=== PATIENT | male | born 1950 | race Caucasian/White ===

== ENCOUNTER 2020-06-10 09:10 | Day surgery (SDC) | payer MEDICARE ==
[2020-06-09 09:04] VITALS: BMI 29.0
--- NOTE | 2020-06-10 08:41 | P.GSHP ---
History of Present Illness H&P Date: 06/10/20 CHIEF COMPLAINT: GERD HISTORY OF PRESENT ILLNESS: The patient is a 69-year-old male who presents reports gastroesophageal reflux disease. Upper endoscopy was offered for further evaluation and management. PAST MEDICAL HISTORY: Please see list. PAST SURGICAL HISTORY: Please see list. MEDICATIONS: Please see list. ALLERGIES: Please see list. SOCIAL HISTORY: No illicit drug use FAMILY HISTORY: No reports of Crohn disease or ulcerative colitis. REVIEW OF ORGAN SYSTEMS: CONSTITUTIONAL: No reports of fevers or chills. GI: Denies any blood in stools or constipation. PHYSICAL EXAM: VITAL SIGNS: Stable GENERAL: Well-developed and pleasant in no acute distress. HEENT: No scleral icterus. Extraocular movements grossly intact. Moist buccal mucosa. NECK: Supple without lymphadenopathy. CHEST: Unlabored respirations. Equal bilateral excursions. CARDIOVASCULAR: Regular rate and rhythm. Distal 2+ pulses. ABDOMEN: Soft, nondistended. MUSCULOSKELETAL: No clubbing, cyanosis, or edema. ASSESSMENT: 1. Gastroesophageal reflux disease PLAN: 1. Recommend proceeding with an upper endoscopy Past Medical History Past Medical History: GERD/Reflux, Hyperlipidemia, Neurologic Disorder, Seizure Disorder, Skin Disorder Additional Past Medical History / Comment(s): LAST SEIZUER 6 yrs ago,epilepsy, PARKINSON'S, hiatal hernia, diff swallowing, constipation,gets rashes on knees and elbows, "borderline cholesterol" History of Any Multi-Drug Resistant Organisms: None Reported Past Surgical History: Orthopedic Surgery Additional Past Surgical History / Comment(s): ORIF L ankle. VICENTE CATARACT SX, surgery on tailbone to remove cyst, Past Anesthesia/Blood Transfusion Reactions: No Reported Reaction Additional Past Anesthesia/Blood Transfusion Reaction / Comment(s): HAS NOT HAD GENERAL SURGERY Smoking Status: Never smoker - Past Family History Mother Family Medical History: No Reported History Additional Family Medical History / Comment(s): . Father Family Medical History: Myocardial Infarction ([place]) Additional Family Medical History / Comment(s): Father of a [place] at the age of 65 yrs. Medications and Allergies Home Medications Medication Instructions Recorded Confirmed Type Omeprazole [PriLOSEC] 20 mg PO BID 02/26/16 06/09/20 History Phenytoin Sodium Extended 100 mg PO TID 02/26/16 06/09/20 History [Dilantin] Aspirin [Adult Low Dose Aspirin EC] 81 mg PO DAILY 06/09/20 06/09/20 History Docusate [Colace] 100 mg PO BID 06/09/20 06/09/20 History Ergocalciferol (Vitamin D2) 50 mcg PO DAILY 06/09/20 06/09/20 History [Vitamin D2 (2000 Iu)] Loratadine [Claritin] 10 mg PO DAILY 06/09/20 06/09/20 History Ubidecarenone [Co Q-10] 200 mg PO DAILY 06/09/20 06/09/20 History amantadine HCL [Amantadine] 100 mg PO BID 06/09/20 06/09/20 History l-Mefol/A-Cyst/Meb12/Algal Oil 1 each PO DAILY 06/09/20 06/09/20 History [Cerefolin Nac Caplet] rOPINIRole HCL [Requip] 1 mg PO HS 06/09/20 06/09/20 History Allergies Allergy/AdvReac Type Severity Reaction Status Date / Time atorvastatin [From Lipitor] AdvReac muscle pain Verified 06/09/20 08:52
[~2020-06-10 09:10] MED LIST: LACTATED RINGERS 1,000 ML IV SCH
[2020-06-10] MEDS ORDERED: LACTATED RINGERS 1,000 ML IV ONE (09:55)
[2020-06-10] MEDS ORDERED: LIDOCAINE 1% (10MG/ML) FOR IV START INTRADERMA ONE (09:56)
[2020-06-10 09:59] VITALS: TEMP 98.2
[2020-06-10] MEDS ORDERED: PROPOFOL 10 MG/ML 20 ML VIAL IV ONE (10:55)
[2020-06-10] MEDS ORDERED: LIDOCAINE 1% INJ 10MG/ML (20 ML MDV) ONE (10:55)
--- NOTE | 2020-06-10 11:13 | P.PCN ---
Date of Procedure: 06/10/20 Description of Procedure: PREOPERATIVE DIAGNOSIS: Gastroesophageal reflux disease. Dysphagia Parkinson's disease POSTOPERATIVE DIAGNOSIS: Gastroesophageal reflux disease. Dysphagia Parkinson's disease Diaphragmatic hiatal hernia OPERATION: Esophagogastroduodenoscopy SURGEON: Giana Barrera MD ANESTHESIA: MAC. INDICATIONS: The patient is a 69-year-old male who presents with reflux disease. Benefits and risks of the procedure were described. Informed consent was obtained. DESCRIPTION: The patient was brought into the endoscopy suite and laid in the left lateral decubitus position. An Olympus gastroscope was passed along the posterior oropharynx down to the distal esophagus where the squamocolumnar junction was encountered at 35 cm from the incisors. The stomach was entered and no bile reflux was found. Additional findings are listed below. The first through third portion of the duodenum was examined and unremarkable. Retroflexion of the scope confirmed Hill grade 4 lower esophageal valve. The squamocolumnar junction demonstrated LA grade B erosive esophagitis. The patient had moderate chronic cough prohibiting dilation. The stomach was desufflated. The patient tolerated the procedure well. FINDINGS: Squamocolumnar junction 35 cm from the incisors. Diaphragmatic hiatus at 40 cm. Hiatal hernia, 5 cm Hill grade 4 lower esophageal valve. LA grade B erosive esophagitis. No active duodenitis. Chronic gastritis Hypersensitive upper esophageal sphincter Chronic cough prohibiting dilation RECOMMENDATIONS: Upper endoscopy as needed. Plan - Discharge Summary New Discharge Prescriptions: Continue Phenytoin Sodium Extended [Dilantin] 100 mg PO TID Omeprazole [PriLOSEC] 20 mg PO BID Ubidecarenone [Co Q-10] 200 mg PO DAILY Ergocalciferol (Vitamin D2) [Vitamin D2 (2000 Iu)] 50 mcg PO DAILY Loratadine [Claritin] 10 mg PO DAILY Docusate [Colace] 100 mg PO BID Aspirin [Adult Low Dose Aspirin EC] 81 mg PO DAILY l-Mefol/A-Cyst/Meb12/Algal Oil [Cerefolin Nac Caplet] 1 each PO DAILY rOPINIRole HCL [Requip] 1 mg PO HS amantadine HCL [Amantadine] 100 mg PO BID Discharge Medication List Omeprazole [PriLOSEC] 20 mg PO BID 02/26/16 [History] Phenytoin Sodium Extended [Dilantin] 100 mg PO TID 02/26/16 [History] Aspirin [Adult Low Dose Aspirin EC] 81 mg PO DAILY 06/09/20 [History] Docusate [Colace] 100 mg PO BID 06/09/20 [History] Ergocalciferol (Vitamin D2) [Vitamin D2 (2000 Iu)] 50 mcg PO DAILY 06/09/20 [History] Loratadine [Claritin] 10 mg PO DAILY 06/09/20 [History] Ubidecarenone [Co Q-10] 200 mg PO DAILY 06/09/20 [History] amantadine HCL [Amantadine] 100 mg PO BID 06/09/20 [History] l-Mefol/A-Cyst/Meb12/Algal Oil [Cerefolin Nac Caplet] 1 each PO DAILY 06/09/20 [History] rOPINIRole HCL [Requip] 1 mg PO HS 06/09/20 [History] Follow up Appointment(s)/Referral(s): Giana Barrera MD [STAFF PHYSICIAN] - 06/16/20 Patient Instructions/Handouts: Hiatal Hernia (DC), Gastroesophageal Reflux Disease (DC) Discharge Disposition: HOME SELF-CARE
[2020-06-10 11:27] VITALS: RESP 16
[2020-06-10 11:48] VITALS: BP 109/72; PULSE 66
== END 2020-06-10 12:32 | disposition home or self-care (01) ==
LOC: ORWHC2ENDO 09:10
PROVIDERS: ATTEND Surgery Plastic and Reconstructive Surgery
DX: K22.10 Ulcer of esophagus without bleeding (principal); R05 Cough; K44.9 Diaphragmatic hernia without obstruction or gangrene; K29.50 Unspecified chronic gastritis without bleeding; R13.10 Dysphagia, unspecified; G40.909 Epilepsy, unspecified, not intractable, without status epilepticus; Z98.42 Cataract extraction status, left eye; Z98.41 Cataract extraction status, right eye; Z82.49 Family history of ischemic heart disease and other diseases of the circulatory system; G20 Parkinson's disease; Z79.82 Long term (current) use of aspirin; Z79.899 Other long term (current) drug therapy; Z88.8 Allergy status to other drugs, medicaments and biological substances
CPT/HCPCS: 43235; J2001; J2704

== ENCOUNTER → 2020-07-03 | Outpatient (CLI) | payer MEDICARE ==
--- NOTE | 2020-07-03 13:29 | FL ---
EXAMINATION TYPE: FL barium swallow DATE OF EXAM: 07/03/2020 COMPARISON: None HISTORY: Gastroesophageal reflux TECHNIQUE: Double air contrast technique was utilized to evaluate the esophagus. Fluoroscopic spot im aging and overhead radiographs were obtained. Real-time observation was performed. FINDINGS: Esophagus dilates to a prominent caliber. A few subtle tertiary contractions are within the distal esophagus. There is incomplete stripping of the esophageal bolus in the horizontal drinking p osition. Multiple episodes of distal esophageal reflux is evident. Small self reducing sliding type h iatal hernia is present. Fluoroscopy time: 20 seconds Images: 155 IMPRESSION: 1. Mild presbyesophagus. 2. Gastroesophageal reflux in the distal esophagus. 3. There may be a small self reducing sliding type hiatal hernia present
== END ==
LOC: RADUSWWP 09:49
PROVIDERS: ATTEND Surgery Plastic and Reconstructive Surgery
DX: K21.9 Gastro-esophageal reflux disease without esophagitis (principal); K22.8 Other specified diseases of esophagus; R00.1 Bradycardia, unspecified
CPT/HCPCS: 74220; 93005

== ENCOUNTER → 2020-12-03 | Outpatient (CLI) | payer MEDICARE ==
[2020-12-03 10:20] LABS: HCT 50.2 % (39.0-53.0); MCH 32.5 pg (25.0-35.0); MCHC 33.9 g/dL (31.0-37.0); Mean Platelet Volume 8.8; Platelet Count 196 k/uL (150-450); RBC 5.23 m/uL (4.30-5.90); RDW 12.9 % (11.5-15.5); WBC 4.3 k/uL (3.8-10.6)
== END | disposition home or self-care (01) ==
LOC: LABPAT 09:04
PROVIDERS: ATTEND Surgery Plastic and Reconstructive Surgery
DX: Z01.812 Encounter for preprocedural laboratory examination (principal); K44.9 Diaphragmatic hernia without obstruction or gangrene
CPT/HCPCS: 36415; 85027

== ENCOUNTER 2020-12-04 06:21 | Day surgery (SDC) | payer MEDICARE ==
--- NOTE | 2020-12-04 06:16 | P.GSHP ---
History of Present Illness H&P Date: 12/04/20 CHIEF COMPLAINT: Paraesophageal hiatal hernia with gastroesophageal reflux disease. HISTORY OF PRESENT ILLNESS: The patient is a 70-year-old male who presents with paraesophageal hiatal hernia. He has completed an esophageal manometry including upper endoscopy workup. Now he presents for surgical intervention. PAST MEDICAL HISTORY: Please see list. PAST SURGICAL HISTORY: Please see list. MEDICATIONS: Please see list. ALLERGIES: Please see list. SOCIAL HISTORY: No illicit drug use FAMILY HISTORY: No reports of Crohn disease or ulcerative colitis. REVIEW OF ORGAN SYSTEMS: CONSTITUTIONAL: No reports of fevers or chills. GI: Denies any blood in stools or constipation. PHYSICAL EXAM: VITAL SIGNS: Stable GENERAL: Well-developed pleasant and in no acute distress. HEENT: No scleral icterus. Extraocular movements grossly intact. Moist buccal mucosa. NECK: Supple without lymphadenopathy. CHEST: Unlabored respirations. Equal bilateral excursions. CARDIOVASCULAR: Regular rate and rhythm. Distal 2+ pulses. ABDOMEN: Soft, nondistended. No peritoneal signs. MUSCULOSKELETAL: No clubbing, cyanosis, or edema. SKIN: Well-perfused. Good skin turgor. MANOMETRY: Shows no evidence of achalasia or scleroderma. ASSESSMENT: 1. Diaphragmatic paraesophageal hiatal hernia with severe gastroesophageal reflux disease. PLAN: 1. Recommend proceeding with a robotic paraesophageal hiatal hernia with possible mesh. 2. Benefits and risks of surgical intervention was discussed including possibility of open technique. 3. Inpatient hospitalization recommended of 2 nights 4. DVT prophylaxis. 5. Antibiotic prophylaxis. 6. He has also completed a very low caloric high-protein diet to address underlying hepatomegaly. Past Medical History Past Medical History: GERD/Reflux, Hyperlipidemia, Neurologic Disorder, Seizure Disorder, Skin Disorder Additional Past Medical History / Comment(s): LAST SEIZURE 6 yrs ago,epilepsy, PARKINSON'S, hiatal hernia, diff swallowing, constipation,gets rashes on knees a nd elbows-NO CURRENT RASH, "borderline cholesterol" History of Any Multi-Drug Resistant Organisms: None Reported Past Surgical History: Orthopedic Surgery Additional Past Surgical History / Comment(s): ORIF L ankle. VICENTE CATARACT SX, PILONIDAL CYSTECTOMY, COLONOSCOPY, EGD Past Anesthesia/Blood Transfusion Reactions: No Reported Reaction Additional Past Anesthesia/Blood Transfusion Reaction / Comment(s): HAS NOT HAD GENERAL SURGERY Smoking Status: Never smoker - Past Family History Mother Family Medical History: No Reported History Additional Family Medical History / Comment(s): . Father Family Medical History: Myocardial Infarction ([place]) Additional Family Medical History / Comment(s): Father of a [place] at the age of 65 yrs. Medications and Allergies Home Medications Medication Instructions Recorded Confirmed Type Omeprazole [PriLOSEC] 20 mg PO BID 02/26/16 12/01/20 History Phenytoin Sodium Extended 100 mg PO TID 02/26/16 12/01/20 History [Dilantin] Aspirin [Adult Low Dose Aspirin EC] 81 mg PO DAILY 06/09/20 12/01/20 History Ergocalciferol (Vitamin D2) 50 mcg PO DAILY 06/09/20 12/01/20 History [Vitamin D2 (2000 Iu)] Loratadine [Claritin] 10 mg PO DAILY 06/09/20 12/01/20 History Ubidecarenone [Co Q-10] 200 mg PO DAILY 06/09/20 12/01/20 History amantadine HCL [Amantadine] 100 mg PO BID 06/09/20 12/01/20 History l-Mefol/A-Cyst/Meb12/Algal Oil 1 each PO DAILY 06/09/20 12/01/20 History [Cerefolin Nac Caplet] rOPINIRole HCL [Requip] 1 mg PO HS 06/09/20 12/01/20 History Allergies Allergy/AdvReac Type Severity Reaction Status Date / Time atorvastatin [From Lipitor] AdvReac muscle pain Verified 12/01/20 14:26
[~2020-12-04 06:21] MED LIST changes: +HEPARIN SODIUM,PORCINE/PF 5,000 UNIT/0.5 ML SYRINGE SQ PRN; -LACTATED RINGERS 1,000 ML IV SCH
[2020-12-04] MEDS ORDERED: CHLORHEXIDINE GLUCONATE 15 ML CUP MUCOUS MEM PRN (07:00)
[2020-12-04] MEDS ORDERED: TAMSULOSIN 0.4 MG CAP.ER.24H PO PRN (07:00)
[2020-12-04] MEDS ORDERED: GABAPENTIN 300 MG CAP PO PRN (07:00)
[2020-12-04] MEDS ORDERED: ACETAMINOPHEN TAB 500 MG TAB PO PRN (07:00)
[2020-12-04] MEDS ORDERED: PANTOPRAZOLE 40 MG/10 ML VIAL IVP PRN (07:00)
[2020-12-04] MEDS ORDERED: MELOXICAM 7.5 MG TAB PO PRN (07:00)
[2020-12-04] MEDS ORDERED: LACTATED RINGERS 1,000 ML IV ONE ×2 (07:16→09:12)
[2020-12-04] MEDS ORDERED: ONDANSETRON 4 MG/2 ML VIAL ONE (07:21)
[2020-12-04] MEDS ORDERED: LIDOCAINE 1% INJ 10MG/ML (20 ML MDV) ONE (07:26)
[2020-12-04] MEDS ORDERED: PROPOFOL 10 MG/ML 20 ML VIAL IV ONE (07:26)
[2020-12-04] MEDS ORDERED: ePHEDrine SULFATE/0.9% NACL/PF 50 MG/5 ML SYRINGE IV ONE (07:26)
[2020-12-04] MEDS ORDERED: NEOSTIGMINE 1 MG/ML 10 ML VIAL ONE (07:26)
[2020-12-04] MEDS ORDERED: HYDROmorphone (PF) 1 MG/ML ONE (07:26)
[2020-12-04] MEDS ORDERED: GLYCOPYRROLATE 0.2 MG/ML 2 ML VIAL ONE (07:26)
[2020-12-04] MEDS ORDERED: fentaNYL (PF) 50 MCG/ML 2 ML AMP ONE (07:26)
[2020-12-04] MEDS ORDERED: SUCCINYLCHOLINE CHLORIDE 100 MG/5 ML SYR IV ONE (07:26)
[2020-12-04] MEDS ORDERED: ROCURONIUM 10 MG/ML (5 ML VIAL) IV ONE (07:26)
[2020-12-04] MEDS ORDERED: DEXAMETHASONE SOD PHOSPHATE 4 MG/ML 1 ML VIAL IVP ONE (07:30)
[2020-12-04] MEDS ORDERED: ONDANSETRON 4 MG/2 ML VIAL IVP ONE (07:30)
[2020-12-04 08:05] LABS: ALT 34 U/L (4-49); AST 34 U/L (17-59); African American GFR (CKD) >90 (>60 ml/min/1.73 sqM); Albumin 4.7 g/dL (3.5-5.0); Alkaline Phosphatase 135 U/L (38-126); Anion Gap 11 mmol/L; Blood Urea Nitrogen 23 mg/dL (9-20); Calcium 9.6 mg/dL (8.4-10.2); Carbon Dioxide 22 mmol/L (22-30); Chloride 105 mmol/L (98-107); Glucose 82 mg/dL (74-99); Non-African American GFR(CKD) >90 (>60 ml/min/1.73 sqM); Potassium 4.4 mmol/L (3.5-5.1); Sodium 138 mmol/L (137-145); Total Bilirubin 0.5 mg/dL (0.2-1.3); Total Protein 7.8 g/dL (6.3-8.2)
[2020-12-04] MEDS ORDERED: LIDOCAINE 1%-EPI 1:100,000 20 ML VIAL SQ ONE (08:10)
[2020-12-04] MEDS ORDERED: HYDROmorphone 1 MG/ML 1 ML SYRINGE ONE (09:30)
[2020-12-04] MEDS: HYDROmorphone 0.5 MG/0.5 ML SYRINGE IVP ONE ×3 (09:33→09:43)
[2020-12-04] MEDS ORDERED: diphenhydrAMINE 50 MG/ML 1 ML VIAL ONE (09:39)
[2020-12-04] MEDS ORDERED: HYDROmorphone 1 MG/ML 1 ML SYRINGE IVP PRN (10:54)
[2020-12-04] MEDS ORDERED: DEXAMETHASONE SOD PHOSPHATE 10 MG/ML 1 ML VIAL IV PRN (10:57)
[2020-12-04] MEDS ORDERED: ONDANSETRON 4 MG/2 ML VIAL IVP PRN (10:57)
--- NOTE | 2020-12-04 11:01 | P.OP ---
Date of Procedure: 12/04/20 Description of Procedure: SURGEON: SHARAD WELLER MD PREOPERATIVE DIAGNOSES: 1. Symptomatic paraesophageal diaphragmatic hiatal hernia. 2. Gastroesophageal reflux disease. 3. Hypertensive heart disease 4. Generalized anxiety disorder 5. Parkinson's disease POSTOPERATIVE DIAGNOSES: 1. Paraesophageal midline diaphragmatic hernia, 3 cm, without incarceration. 2. Gastroesophageal reflux disease. 3. Hypertensive heart disease 4. Generalized anxiety disorder 5. Parkinson's disease 6. Esophageal dysmotility with ineffective esophageal motility OPERATION: 1. Robotic-assisted da Kristine Xi laparoscopic repair of incarcerated paraesophageal hiatal hernia, 5 x 4 cm, with Pigeon Biopatch A 8 x 8 cm. 2. Intraoperative esophagogastroduodenoscopy 3. Placement of 56-Palestinian bougie for esophageal dysmotility ANESTHESIA: General with local anesthetic. ESTIMATED BLOOD LOSS: 5 mL SPECIMENS REMOVED: None COMPLICATIONS: None. Condition: stable Disposition: floor FINDINGS: 1. Midline incarcerated paraesophageal hiatal hernia 5 x 4 cm 2. Intraoperative upper endoscopy confirms complete closure of hiatal hernia from Hill grade 3 to Hill grade 1 3. Intraesophageal length over 2 cm INDICATIONS: The patient is a 70-year-old male who presents with gastroesophageal reflux disease poorly controlled despite medications, and a symptomatic diaphragmatic hiatal hernia. Preoperative workup including upper endoscopy demonstrated a sliding hiatal hernia. The patient completed an esophageal manometry. Given the severity of symptoms, the patient had elected for surgical intervention. Benefits and risks including bleeding, infection, recurrence, dysphagia, injury to the lung, need for further surgery was described at length. Informed consent was obtained. DESCRIPTION: The patient was brought into the operating room and placed in supine position. Preoperatively the patient had received heparin subcutaneously for DVT prophylaxis. After general induction, the abdomen was prepped and draped in standard sterile fashion. The patient had previously voided prior to coming to the operating room. Ioban draping was placed along the abdomen. A timeout protocol was confirmed with the surgical team, for which the patient's name, procedure to be performed including DVT prophylaxis with bilateral SCDs, and preoperative antibiotics were also confirmed. A robotic da Kristine Xi system was prepped and primed. At 12 cm from the xiphoid to just below the umbilicus, proposed port sites were marked with indelible marker along the left axillary line, left mid-clavicular line with each ports were marked 10 cm from each other. A 5 mm 0 degrees laparoscopic trocar entry was performed along the left upper quadrant. The abdomen was insufflated to 15 mmHg pressure was tolerated well. Diagnostic laparoscopy demonstrated no injury to bowel, viscera, or mesentery. No injury had occurred to the small bowel or viscera. The liver was smooth consistent with two-week high-protein low-carb diet. Previous trochar sites from cholecystectomy were used. Next, one 8 mm robotic port was placed along the right upper abdomen. An 8-mm port was were placed along the right lateral lateral abdominal wall. The camera 8-mm port was maintained along the epigastrium. Another 12 mm port was placed along the left upper abdominal wall after exchanging the 5 mm port. Please note that the ports were placed at least 20 cm away from the target anatomy. Care was taken to check that each robotic arm were safely away from collision with the bed or the patient. At the epigastrium, a medium sized Jarad liver retractor was placed under direct visualization with the Iron Entry Level Electrical Engineer placed under the right shoulder of the patient. All robotic arms were used. The patient was repositioned in reverse Trendelenburg position at 21-degrees after lowering the bed. The robot was docked above the right side of the patient. Using a grasper for arm 3, a grasper for arm 1, including vessel sealer for arm 2, the robotic system was docked and primed as described. Instruments were i nterchanged by the assistant activities director. I had sat at the console. The gastrohepatic ligament was cleaved using a vessel sealer. Next, the phrenoesophageal ligament was mobilized and the distal esophagus was mobilized circumferentially. The left and right crura was identified. Circumferentially, the hernia sac was excised and brought into the peritoneal cavity. Moderate dissection into the mediastinum was performed to release the esophagus into the abdominal cavity. The paraesophageal hiatal hernia sac was also incised and divided from the esophagus. Care was taken to avoid any gastrotomy. The measured defect was consistent with 3 cm axial length and 3 cm in width. After dissection, the distal esophagus of 2+ cm was brought into the abdominal cavity. Once the hiatus and crura was dissected, 2-0 VLOC nonabsorbable suture was placed to reapproximate the diaphragmatic hiatus posteriorly. To buttress the repair, a Pigeon Biopatch A was prepared along the back table and cut in half of a talbot-hole fashion as to reinforce the repair as an underlay. The mesh was placed along the crural repair and tagged using horizontal mattress sutures using 2-0 VLOC. I went to the head of the bed to perform intraoperative esophagogastroduodenoscopy and placement of a 56Fr bougie. The bougie was passed along the posterior oropharynx into the stomach to address pre-existing esophageal dysmotility for 2 minutes then removed. An Olympus gastroscope was passed through posterior oropharynx. Retroflexion of the scope confirmed a Hill grade 1 lower esophageal valve. A gastric cardia diverticulum was identified. The stomach had been desufflated. No evidence of leaks were found of the esophagus or stomach. The GI tract with desufflated This concluded the endoscopic portion of the case. The robot was undocked from the patient. I re-scrubbed into the case. All instruments and pneumoperitoneum and specimens were evacuated from the abdominal cavity. Incisions were reapproximated using 4-0 Monocryl in an interrupted subcuticular fashion. Liquid glue was applied to the skin. Local anesthetic was infiltrated in all wounds for postop analgesia. At the end of the procedure, needle, sponge, and instrument count was verified correct by the surgical brace maker. The patient had tolerated the procedure well and was taken to the postanesthesia unit in stable condition.
[2020-12-04 11:42] LABS: Basophils % (A) 0 %; Eosinophils # (A) 0.1 k/uL (0-0.7); Eosinophils % (A) 1 %; HCT 50.8 % (39.0-53.0); HGB 16.9 gm/dL (13.0-17.5); Lymphocytes # (A) 0.2 k/uL (1.0-4.8); Lymphocytes % (A) 4 %; MCH 32.1 pg (25.0-35.0); MCHC 33.2 g/dL (31.0-37.0); MCV 96.7 fL (80.0-100.0); Mean Platelet Volume 8.5; Monocytes # (A) 0.1 k/uL (0-1.0); Monocytes % (A) 2 %; Neutrophils % (A) 92 %; Platelet Count 187 k/uL (150-450); RBC 5.25 m/uL (4.30-5.90); WBC 6.5 k/uL (3.8-10.6)
[2020-12-04] MEDS ORDERED: ONDANSETRON 4 MG/2 ML VIAL IVP SCH (12:00)
[2020-12-04] MEDS: DEXAMETHASONE SOD PHOSPHATE 4 MG/ML 1 ML VIAL IV SCH ×2 (12:02→16:56)
[2020-12-04 12:08] LABS: African American GFR (CKD) >90 (>60 ml/min/1.73 sqM); Anion Gap 12 mmol/L; Blood Urea Nitrogen 20 mg/dL (9-20); Calcium 9.3 mg/dL (8.4-10.2); Carbon Dioxide 23 mmol/L (22-30); Chloride 102 mmol/L (98-107); Glucose 115 mg/dL (74-99); Non-African American GFR(CKD) >90 (>60 ml/min/1.73 sqM); Potassium 4.5 mmol/L (3.5-5.1); Sodium 137 mmol/L (137-145)
[2020-12-04] MEDS: SODIUM CHLORIDE 0.9% 1,000 ML IV SCH (12:30)
[2020-12-04 13:50] VITALS: BMI 26.0
[2020-12-04] MEDS ORDERED: PHENYTOIN SODIUM EXTENDED 100 MG CAP PO SCH (16:00)
[2020-12-05] MEDS: DEXAMETHASONE SOD PHOSPHATE 4 MG/ML 1 ML VIAL IV SCH ×3 (00:47→12:48)
[2020-12-05] MEDS: PHENYTOIN SODIUM EXTENDED 100 MG CAP PO SCH ×2 (00:48→08:45)
[2020-12-05 07:59] LABS: Basophils % (A) 0 %; Eosinophils % (A) 1 %; Lymphocytes # (A) 0.5 k/uL (1.0-4.8); Lymphocytes % (A) 8 %; MCH 32.6 pg (25.0-35.0); Mean Platelet Volume 9.8; Monocytes # (A) 0.3 k/uL (0-1.0); Monocytes % (A) 4 %; Neutrophils # (A) 5.6 k/uL (1.3-7.7); Neutrophils % (A) 86 %; Platelet Count 174 k/uL (150-450); RDW 12.9 % (11.5-15.5); WBC 6.5 k/uL (3.8-10.6)
[2020-12-05] MEDS: SODIUM CHLORIDE 0.9% 1,000 ML IV SCH (08:40)
[2020-12-05] MEDS ORDERED: ENOXAPARIN 30 MG/0.3 ML SYRINGE SQ SCH (09:00)
[2020-12-05] MEDS ORDERED: ASPIRIN 81 MG PO SCH (09:00)
--- NOTE | 2020-12-05 12:34 | FL ---
EXAMINATION TYPE: FL esophagus cervic/pharynx DATE OF EXAM: 12/05/2020 COMPARISON: None HISTORY: 07/03/2020 TECHNIQUE: Single contrast technique. Patient was performed in the supine view with oblique views obt ained due to the patient's physical condition unable to perform an appropriate exam. This may cause s ome limitation. FINDINGS: Esophagus is somewhat patulous. Contrast passes through the Vincent without significant hesi tancy. No extravasation of contrast is evident. Overhead radiographs were obtained. No suspicious extravasation is evident. There is some free air pr esent during this examination. Fluoroscopy time: 8 seconds. Images: 11 IMPRESSION: 1. No significant has seen passing through the level of the ascending fundoplication. 2. No extravasation. 3. Some limitation of the examination due to physical condition.
[2020-12-05 14:49] VITALS: BP 121/73; PULSE 71; RESP 17; TEMP 98.1
--- NOTE | 2020-12-05 15:33 | P.PN ---
Subjective Progress Note Date: 12/05/20 CHIEF COMPLAINT: Symptomatic hiatal hernia HISTORY OF PRESENT ILLNESS: The patient is a 70-year-old male status post hiatal hernia repair. He is postoperative day 1. He completed his esophagram. Ov gretta, patient rolled out of bed. No current injuries. His is at bedside. "I feel great!" He denies any further GERD. He denies any troubles with urination. ROS: No reports of nausea and vomiting. No bowel movements. No fevers or chills. No new chest pain. No productive sputum. He has Parkinson's disease with tremors. He has esophageal dysmotility PHYSICAL EXAM: VITAL SIGNS: Reviewed CONSTITUTIONAL: Well developed and in no acute distress. EYES: Conjuctivae without sclera icterus. Extraocular movements grossly intact. HEAD, EARS, NOSE, THROAT: Moist buccal mucosa. Head is atraumatic, normocephalic. Hears conversational speech. No nasal drainage. NECK: No thyroidomegaly. RESPIRATORY: Non-labored respirations and equal bilateral excursions. CARDIOVASCULAR: Palpable 2+ radial pulses. ABDOMEN: Incisions clean dry and intact. Soft. No peritonitis. MUSCULOSKELETAL: No gross deformity of the lower extremities noted. No clubbing. No cyanosis. SKIN: Good skin turgor. Well perfused. NEUROLOGIC: Cranial nerves II through XII grossly intact. No focal or later alizing signs. PSYCH: Appropriate affect. Alert and oriented to person, place and time. CLINICAL LABS: White blood cell count normal at 6.5. Creatinine normal. STUDIES: Barium swallow independently reviewed demonstrates contrast progresses into the stomach. No significant obstruction. The is my independent interpretation. No evidence of leak. ASSESSMENT: 1. Hiatal hernia with gastroesophageal reflux disease 2. Esophageal dysmotility, pre-existing 3. Parkinson's disease PLAN: 1. Discharge diet and instructions reviewed. 2. Post-Jackie diet reviewed 3. Follow up in 5 days. Objective - Vital Signs Vital signs: Vital Signs Temp 97.5 F L 12/05/20 08:00 Pulse 79 12/05/20 08:00 Resp 18 12/05/20 08:00 BP 125/75 12/05/20 08:00 Pulse Ox 93 L 12/05/20 08:00 Intake & Output 08/06/21 08/07/21 08/07/21 18:59 06:59 18:59 Intake Total 1700 Output Total 205 Balance 1495 Weight 80.1 kg Intake: IV 1700 Output: Urine 200 Estimated Blood Loss 5 Other: Voiding Method Toilet Urinal # Voids 1 2 - Labs CBC & Chem 7: 12/05/20 07:01 12/04/20 11:03 Labs: Abnormal Lab Results - Last 24 Hours (Table) 12/05/20 Range/Units 07:01 Lymphocytes # 0.5 L (1.0-4.8) k/uL
--- NOTE | 2020-12-05 15:48 | P.DS ---
Providers Date of admission: 12/04/2020 Expected date of discharge: 12/05/20 Attending physician: Giana Barrera Primary care physician: Dominique Mathews - Discharge Diagnosis(es) (1) Dysphagia Current Visit: No Status: Acute (2) Paraesophageal hernia Current Visit: No Status: Acute (3) Parkinson disease Current Visit: No Status: Acute Hospital Course: CHIEF COMPLAINT: Symptomatic hiatal hernia HISTORY OF PRESENT ILLNESS: The patient is a 70-year-old male status post hiatal hernia repair. He is postoperative day 1. He completed his esophagram. Overnight, patient rolled out of bed. No current injuries. His is at bedside. "I feel great!" He denies any further GERD. He denies any troubles with urination. ROS: No reports of nausea and vomiting. No bowel movements. No fevers or chills. No new chest pain. No productive sputum. He has Parkinson's disease with tremors. He has esophageal dysmotility PHYSICAL EXAM: VITAL SIGNS: Reviewed CONSTITUTIONAL: Well developed and in no acute distress. EYES: Conjuctivae without sclera icterus. Extraocular movements grossly intact. HEAD, EARS, NOSE, THROAT: Moist buccal mucosa. Head is atraumatic, normocephalic. Hears conversational speech. No nasal drainage. NECK: No thyroidomegaly. RESPIRATORY: Non-labored respirations and equal bilateral excursions. CARDIOVASCULAR: Palpable 2+ radial pulses. ABDOMEN: Incisions clean dry and intact. Soft. No peritonitis. MUSCULOSKELETAL: No gross deformity of the lower extremities noted. No clubbing. No cyanosis. SKIN: Good skin turgor. Well perfused. NEUROLOGIC: Cranial nerves II through XII grossly intact. No focal or lateralizing signs. PSYCH: Appropriate affect. Alert and oriented to person, place and time. CLINICAL LABS: White blood cell count normal at 6.5. Creatinine normal. STUDIES: Barium swallow independently reviewed demonstrates contrast progresses into the stomach. No significant obstruction. The is my independent interpretation. No evidence of leak. ASSESSMENT: 1. Hiatal hernia with gastroesophageal reflux disease 2. Esophageal dysmotility, pre-existing 3. Parkinson's disease PLAN: 1. Discharge diet and instructions reviewed. 2. Post-Jackie diet reviewed 3. Follow up in 5 days. Procedures: OPERATION: 1. Robotic-assisted da Kristine Xi laparoscopic repair of incarcerated paraesophageal hiatal hernia, 5 x 4 cm, with Carlton Biopatch A 8 x 8 cm. 2. Intraoperative esophagogastroduodenoscopy 3. Placement of 56-Jamaican bougie for esophageal dysmotility ANESTHESIA: General with local anesthetic. ESTIMATED BLOOD LOSS: 5 mL SPECIMENS REMOVED: None COMPLICATIONS: None. Condition: stable Disposition: floor FINDINGS: 1. Midline incarcerated paraesophageal hiatal hernia 5 x 4 cm 2. Intraoperative upper endoscopy confirms complete closure of hiatal hernia from Hill grade 3 to Hill grade 1 3. Intraesophageal length over 2 cm Patient Condition at Discharge: Good Plan - Discharge Summary Discharge Rx Participant: Yes New Discharge Prescriptions: New Acetaminophen Tab [Tylenol Tab] 1,000 mg PO Q6HR PRN #30 tablet PRN Reason: Pain Simethicone [Gas-X] 125 mg PO AC-TID PRN #20 capsule PRN Reason: Pain Continue Phenytoin Sodium Extended [Dilantin] 100 mg PO TID Ubidecarenone [Co Q-10] 200 mg PO DAILY Ergocalciferol (Vitamin D2) [Vitamin D2 (2000 Iu)] 50 mcg PO DAILY Loratadine [Claritin] 10 mg PO DAILY Aspirin [Adult Low Dose Aspirin EC] 81 mg PO DAILY l-Mefol/A-Cyst/Meb12/Algal Oil [Cerefolin Nac Caplet] 1 each PO DAILY rOPINIRole HCL [Requip] 1 mg PO HS amantadine HCL [Amantadine] 100 mg PO BID Discontinued Omeprazole [PriLOSEC] 20 mg PO BID Discharge Medication List Phenytoin Sodium Extended [Dilantin] 100 mg PO TID 02/26/16 [History] Aspirin [Adult Low Dose Aspirin EC] 81 mg PO DAILY 06/09/20 [History] Ergocalciferol (Vitamin D2) [Vitamin D2 (2000 Iu)] 50 mcg PO DAILY 06/09/20 [History] Loratadine [Claritin] 10 mg PO DAILY 06/09/20 [History] Ubidecarenone [Co Q-10] 200 mg PO DAILY 06/09/20 [History] amantadine HCL [Amantadine] 100 mg PO BID 06/09/20 [History] l-Mefol/A-Cyst/Meb12/Algal Oil [Cerefolin Nac Caplet] 1 each PO DAILY 06/09/20 [History] rOPINIRole HCL [Requip] 1 mg PO HS 06/09/20 [History] Acetaminophen Tab [Tylenol Tab] 1,000 mg PO Q6HR PRN #30 tablet 12/05/20 [Rx] Simethicone [Gas-X] 125 mg PO AC-TID PRN #20 capsule 12/05/20 [Rx] Follow up Appointment(s)/Referral(s): Giana Barrera MD [STAFF PHYSICIAN] - 12/08/20 Patient Instructions/Handouts: Laparoscopic Hiatal Hernia Repair (DC) Activity/Diet/Wound Care/Special Instructions: Liquid diet only for 2 weeks until Dec 18 No lifting over 4 pounds in 4 weeks, January 04August shower No soaking in bath tubs for until Dec 18 Please notify your surgeon if you develop nausea and vomiting including new onset of abdominal pain. Please ambulate at all times. Use Simethicone, Gas-X, Tylenol and ibuprofen or Aleve scheduled for the next 24-48 hours for best pain relief. Use ice along incisions for the today to prevent swelling. Please open, cut, crush pills larger than the size of a tic tack No carbonated beverages. No straws. Do not remove scopolamine patch for 3 days, if present Avoiding Gas Avoid drinking through a straw. Do not chew gum or tobacco. These actions cause you to swallow air, which produces excess gas in your stomach. Chew with your mouth closed. Avoid any foods that cause stomach gas and distention. These foods include corn, dried beans, peas, lentils, onions, broccoli, cauliflower and any food from the cabbage family. Avoid carbonated drinks, alcohol, citrus and tomato products. Carbonated drinks (sodas) are not allowed for the first six to eight weeks after surgery. After this time you can try them again in small amounts Clear Liquid Diet The first diet after surgery is the clear liquid diet. It includes the following liquids: Apple juice Cranberry juice Grape juice Chicken broth Beef broth Flavored gelatin (Jell-O) Decaf tea and coffee Caffeinated beverages are permitted based on tolerance Popsicles Indonesian ice Full Liquid Diet The full liquid diet contains anything on the clear liquid diet, plus: Milk, soy, rice and almond (no chocolate) Cream of wheat, cream of rice, grits Strained creamed soups (no tomato or broccoli) Vanilla and strawberry-flavored ice cream Sherbet Blended, custard styled or whipped yogurt (plain or vanilla only) Vanilla and butterscotch pudding (no chocolate or coconut) Nutritional drinks including Ensure, Boost, [place] Instant Breakfast (no chocolate-flavored) Note: Dairy products, such as milk, ice cream and pudding, may cause diarrhea in some people just after surgery. You may need to avoid milk products. If so, substitute them with lactose-free beverages, such as soy, rice, Lactaid or almond milks. Discharge Disposition: HOME SELF-CARE
== END 2020-12-05 16:11 | disposition home or self-care (01) ==
LOC: OR 06:21 → 4SSUR 10:07 → OR 12-05 16:11
PROVIDERS: ATTEND Surgery Plastic and Reconstructive Surgery
DX: K44.9 Diaphragmatic hernia without obstruction or gangrene (principal); G20 Parkinson's disease; K21.9 Gastro-esophageal reflux disease without esophagitis; K22.4 Dyskinesia of esophagus; Z79.82 Long term (current) use of aspirin; Z98.890 Other specified postprocedural states; E78.5 Hyperlipidemia, unspecified; I34.1 Nonrheumatic mitral (valve) prolapse; Z86.69 Personal history of other diseases of the nervous system and sense organs
CPT/HCPCS: 43281; 94760; 80053; 80048; 85025 ×2; 74210; C1781; J1200; J1100 ×2; J2710; J0690 ×2; J2405; J2001; J3010; J1650; J1170 ×2; J0330; J2704; C9113; Q9967; J1644

== ENCOUNTER 2023-02-05 08:47 | Observation (INO) | payer MEDICARE ==
[2023-02-05] MEDS ORDERED: ASPIRIN 81 MG PO STA (08:52)
[2023-02-05] MEDS ORDERED: NITROGLYCERIN OINT 1 INCH/GM PACKET TOPICAL STA (08:52)
--- NOTE | 2023-02-05 09:12 | ED ---
General Adult HPI - General Chief complaint: Chest Pain Stated complaint: Chest Pain,SHAMIKA Time Seen by Provider: 02/05/23 08:48 Source: patient, EMS, RN notes reviewed Mode of arrival: EMS Limitations: no limitations - History of Present Illness Initial comments: Patient is a pleasant 72-year-old male presenting to the emergency department with concerns with chest discomfort. Onset of symptoms was this morning. Patient states discomfort does wake him from sleep. Patient states discomfort felt like tightness or squeezing. Patient did have associated dyspnea. Symptoms improved with oxygen by EMS. Patient currently symptom-free. Patient states he did have symptoms similar once before however is unclear why. - Related Data Home Medications Medication Instructions Recorded Confirmed Phenytoin Sodium Extended 100 mg PO TID 02/26/16 12/01/20 [Dilantin] Aspirin [Adult Low Dose Aspirin EC] 81 mg PO DAILY 06/09/20 12/01/20 Ergocalciferol (Vitamin D2) 50 mcg PO DAILY 06/09/20 12/01/20 [Vitamin D2 (2000 Iu)] Loratadine [Claritin] 10 mg PO DAILY 06/09/20 12/01/20 Ubidecarenone [Co Q-10] 200 mg PO DAILY 06/09/20 12/01/20 amantadine HCL [Amantadine] 100 mg PO BID 06/09/20 12/01/20 l-Mefol/A-Cyst/Meb12/Algal Oil 1 each PO DAILY 06/09/20 12/01/20 [Cerefolin Nac Caplet] rOPINIRole HCL [Requip] 1 mg PO HS 06/09/20 12/01/20 Previous Rx's Medication Instructions Recorded Acetaminophen Tab [Tylenol Tab] 1,000 mg PO Q6HR PRN #30 tablet 12/05/20 Simethicone [Gas-X] 125 mg PO AC-TID PRN #20 capsule 12/05/20 Lactulose [Cephulac] 30 gm PO BID #240 ml 12/08/20 Loratadine-Pseudoeph 5-120 mg 1 each PO Q12HR #20 tab 12/08/20 [Claritin-D 12 HR] Allergies Allergy/AdvReac Type Severity Reaction Status Date / Time atorvastatin [From Lipitor] AdvReac muscle pain Verified 02/05/23 09:04 Review of Systems ROS Statement: Those systems with pertinent positive or pertinent negative responses have been documented in the HPI. ROS Other: All systems not noted in ROS Statement are negative. Constitutional: Denies: fever Eyes: Denies: eye pain ENT: Denies: ear pain Respiratory: Reports: as per HPI. Denies: cough Cardiovascular: Reports: as per HPI, chest pain Endocrine: Denies: fatigue Gastrointestinal: Denies: abdominal pain, vomiting Genitourinary: Denies: dysuria Musculoskeletal: Denies: back pain Past Medical History Past Medical History: GERD/Reflux, Hyperlipidemia, Neurologic Disorder, Seizure Disorder, Skin Disorder Additional Past Medical History / Comment(s): LAST SEIZURE 6 yrs ago,epilepsy, PARKINSON'S, hiatal hernia, diff swallowing, constipation,gets rashes on knees and elbows-NO CURRENT RASH, "borderline cholesterol" History of Any Multi-Drug Resistant Organisms: None Reported Past Surgical History: Orthopedic Surgery Additional Past Surgical History / Comment(s): ORIF L ankle. VICENTE CATARACT SX, PILONIDAL CYSTECTOMY, COLONOSCOPY, EGD Past Anesthesia/Blood Transfusion Reactions: No Reported Reaction Additional Past Anesthesia/Blood Transfusion Reaction / Comment(s): HAS NOT HAD GENERAL SURGERY Past Psychological History: No Psychological Hx Reported Smoking Status: Never smoker Past Alcohol Use History: None Reported Past Drug Use History: None Reported - Past Family History Mother Family Medical History: No Reported History Additional Family Medical History / Comment(s): . Father Family Medical History: Myocardial Infarction ([place]) Additional Family Medical History / Comment(s): Father of a [place] at the age of 65 yrs. General Exam Limitations: no limitations General appearance: alert, in no apparent distress Head exam: Present: normocephalic Eye exam: Present: normal appearance Neck exam: Present: normal inspection Respiratory exam: Present: normal lung sounds bilaterally. Absent: chest wall tenderness Cardiovascular Exam: Present: regular rate, normal rhythm, systolic murmur Expanded Peripheral pulses: 2+: Radial (R), Radial (L), Dorsalis Pedis (R), Dorsalis Pedis (L) GI/Abdominal exam: Present: soft. Absent: tenderness Extremities exam: Present: normal inspection. Absent: pedal edema, calf tenderness Neurological exam: Present: alert Psychiatric exam: Present: normal affect, normal mood Skin exam: Present: normal color Course Vital Signs 02/05/23 02/05/23 08:52 10:00 Temperature 97.6 F Pulse Rate 69 71 Respiratory 18 20 Rate Blood Pressure 138/91 111/78 O2 Sat by Pulse 95 95 Oximetry EKG Findings - EKG Results: EKG: interpreted by [facility], sinus rhythm, normal axis, normal QRS, normal ST/T Medical Decision Making - Medical Decision Making Was pt. sent in by a medical professional or institution (, [facility], [facility], urgent care, hospital, or [facility]...) When possible be specific @ -No Did you speak to anyone other than the patient for history (EMS, parent, family, police, friend...)? What history was obtained from this source @ -No Did you review nursing and triage notes (agree or disagree)? Why? @ -I reviewed and agree with nursing and triage notes Were old charts reviewed (outside hosp., previous admission, EMS record, old EKG, old radiological studies, urgent care reports/EKG's, [facility] records)? Report findings @ -No old charts were reviewed Differential Diagnosis (chest pain, altered mental status, abdominal pain women, abdominal pain men, vaginal bleeding, weakness, fever, dyspnea, syncope, headache, dizziness, GI bleed, back pain, seizure, CVA, palpatations, mental health, musculoskeletal)? @ -Differential Chest Pain: Stable Angina, Unstable Angina, STEMI, NSTEMI Aortic Dissection, Pneumothorax, Musculoskeletal, Esophageal Spasm GERD, Cholecystitis, Pancreatitis, Zoster, this is not meant to be an all-inclusive list. EKG interpreted by me (3pts min.). @ -As above X-rays interpreted by me (1pt min.). @ -Chest x-ray shows some left hilar fullness CT interpreted by me (1pt min.). @ -None done U/S interpreted by me (1pt. min.). @ -None done What testing was considered but not performed or refused? (CT, X-rays, U/S, labs)? Why? @ -None What meds were considered but not given or refused? Why? @ -None Did you discuss the management of the patient with other professionals (professionals i.e. , [facility], [facility], lab, RT, psych nurse, psychosocial rehabilitation counselor, administration professional, teacher, communications officer, field nurse case manager)? Give summary @ -Case was discussed with Dr. bain with [facility] who will admit covering Dr. Campuzano, who admits for Dr. Mathews Was smoking cessation discussed for >3mins.? @ -No Was critical care preformed (if so, how long)? @ -No Were there social determinants of health that impacted care today? How? ( Homelessness, low income, unemployed, alcoholism, drug addiction, transportation, low edu. Level, literacy, decrease access to med. care, [facility], rehab)? @ -No Was there de-escalation of care discussed even if they declined (Discuss DNR or withdrawal of care, Hospice)? DNR status @ -No What co-morbidities impacted this encounter? (DM, HTN, Smoking, COPD, CAD, Cancer, CVA, ARF, Chemo, Hep., AIDS, mental health diagnosis, sleep apnea, morbid obesity)? @ -None Was patient admitted / discharged? Hospital course, mention meds given and route, prescriptions, significant lab abnormalities, going to OR and other pertinent info. @ -Patient reevaluated and resting comfortably in bed. Patient symptom free at this time. First troponin negative. Patient and family updated on results and plan. Patient will be admitted with cardiac consult. Admission orders written. Undiagnosed new problem with uncertain prognosis? @ -No Drug Therapy requiring intensive monitoring for toxicity (Heparin, Nitro, Insulin, Cardizem)? @ -No Were any procedures done? @ -No Diagnosis/symptom? @ -Chest pain Acute, or Chronic, or Acute on Chronic? @ -Acute Uncomplicated (without systemic symptoms) or Complicated (systemic symptoms)? @ -default Side effects of treatment? @ -No Exacerbation, Progression, or Severe Exacerbation? @ -No Poses a threat to life or bodily function? How? (Chest pain, [place], [place], pneumonia, PE, COPD, DKA, ARF, appy, cholecystitis, CVA, Diverticulitis, Homicidal, Suicidal, threat to staff... and all critical care pts) @ -No - Lab Data Result diagrams: 02/05/23 09:10 02/05/23 09:10 Lab Results 02/05/23 02/05/23 02/05/23 Range/Units 09:10 09:10 09:10 WBC 7.0 (3.8-10.6) k/uL RBC 5.37 (4.30-5.90) m/uL Hgb 17.3 (13.0-17.5) gm/dL Hct 51.7 (39.0-53.0) % MCV 96.3 (80.0-100.0) fL MCH 32.1 (25.0-35.0) pg MCHC 33.4 (31.0-37.0) g/dL RDW 13.1 (11.5-15.5) % Plt Count 191 (150-450) k/uL MPV 8.7 Neutrophils % 69 % Lymphocytes % 12 % Monocytes % 5 % Eosinophils % 10 % Basophils % 1 % Neutrophils # 4.9 (1.3-7.7) k/uL Lymphocytes # 0.9 L (1.0-4.8) k/uL Monocytes # 0.3 (0-1.0) k/uL Eosinophils # 0.7 (0-0.7) k/uL Basophils # 0.1 (0-0.2) k/uL PT 12.3 H (9.0-12.0) sec INR 1.2 H (<1.2) APTT 25.6 (22.0-30.0) sec D-Dimer 0.31 (<0.60) mg/L FEU Sodium 139 (137-145) mmol/L Potassium 4.9 (3.5-5.1) mmol/L Chloride 107 (98-107) mmol/L Carbon Dioxide 23 (22-30) mmol/L Anion Gap 9 mmol/L BUN 23 H (9-20) mg/dL Creatinine 0.85 (0.66-1.25) mg/dL Est GFR (CKD-EPI)AfAm >90 (>60 ml/min/1.73 sqM) Est GFR (CKD-EPI)NonAf 88 (>60 ml/min/1.73 sqM) Glucose 85 (74-99) mg/dL Calcium 9.1 (8.4-10.2) mg/dL Magnesium 2.2 (1.6-2.3) mg/dL Total Bilirubin 0.7 (0.2-1.3) mg/dL AST 32 (17-59) U/L ALT 33 (4-49) U/L Alkaline Phosphatase 116 (38-126) U/L Troponin I (0.000-0.034) ng/mL Total Protein 7.9 (6.3-8.2) g/dL Albumin 4.4 (3.5-5.0) g/dL 02/05/23 Range/Units 09:10 WBC (3.8-10.6) k/uL RBC (4.30-5.90) m/uL Hgb (13.0-17.5) gm/dL Hct (39.0-53.0) % MCV (80.0-100.0) fL MCH (25.0-35.0) pg MCHC (31.0-37.0) g/dL RDW (11.5-15.5) % Plt Count (150-450) k/uL MPV Neutrophils % % Lymphocytes % % Monocytes % % Eosinophils % % Basophils % % Neutrophils # (1.3-7.7) k/uL Lymphocytes # (1.0-4.8) k/uL Monocytes # (0-1.0) k/uL Eosinophils # (0-0.7) k/uL Basophils # (0-0.2) k/uL PT (9.0-12.0) sec INR (<1.2) APTT (22.0-30.0) sec D-Dimer (<0.60) mg/L FEU Sodium (137-145) mmol/L Potassium (3.5-5.1) mmol/L Chloride (98-107) mmol/L Carbon Dioxide (22-30) mmol/L Anion Gap mmol/L BUN (9-20) mg/dL Creatinine (0.66-1.25) mg/dL Est GFR (CKD-EPI)AfAm (>60 ml/min/1.73 sqM) Est GFR (CKD-EPI)NonAf (>60 ml/min/1.73 sqM) Glucose (74-99) mg/dL Calcium (8.4-10.2) mg/dL Magnesium (1.6-2.3) mg/dL Total Bilirubin (0.2-1.3) mg/dL AST (17-59) U/L ALT (4-49) U/L Alkaline Phosphatase (38-126) U/L Troponin I <0.012 (0.000-0.034) ng/mL Total Protein (6.3-8.2) g/dL Albumin (3.5-5.0) g/dL Disposition Clinical Impression: Chest pain Disposition: ADMITTED IP TO THIS HOSP Is patient prescribed a controlled substance at d/c from ED?: No Referrals: Dominique Mathews DO [Primary Care Provider] - 1-2 days Time of Disposition: 10:32
[2023-02-05 09:28] LABS: Basophils # (A) 0.1 k/uL (0-0.2); Basophils % (A) 1 %; Eosinophils # (A) 0.7 k/uL (0-0.7); Eosinophils % (A) 10 %; HCT 51.7 % (39.0-53.0); HGB 17.3 gm/dL (13.0-17.5); Lymphocytes # (A) 0.9 k/uL (1.0-4.8); Lymphocytes % (A) 12 %; MCH 32.1 pg (25.0-35.0); MCHC 33.4 g/dL (31.0-37.0); MCV 96.3 fL (80.0-100.0); Mean Platelet Volume 8.7; Monocytes # (A) 0.3 k/uL (0-1.0); Monocytes % (A) 5 %; Neutrophils # (A) 4.9 k/uL (1.3-7.7); Neutrophils % (A) 69 %; Platelet Count 191 k/uL (150-450); RBC 5.37 m/uL (4.30-5.90); RDW 13.1 % (11.5-15.5)
[2023-02-05 09:40] LABS: ALT 33 U/L (4-49); African American GFR (CKD) >90 (>60 ml/min/1.73 sqM); Albumin 4.4 g/dL (3.5-5.0); Anion Gap 9 mmol/L; Blood Urea Nitrogen 23 mg/dL (9-20); Calcium 9.1 mg/dL (8.4-10.2); Carbon Dioxide 23 mmol/L (22-30); Chloride 107 mmol/L (98-107); Glucose 85 mg/dL (74-99); Non-African American GFR(CKD) 88 (>60 ml/min/1.73 sqM); Sodium 139 mmol/L (137-145); Total Bilirubin 0.7 mg/dL (0.2-1.3); Total Protein 7.9 g/dL (6.3-8.2)
[2023-02-05 09:41] LABS: Potassium 4.9 mmol/L (3.5-5.1)
[2023-02-05 09:42] LABS: AST 32 U/L (17-59); Alkaline Phosphatase 116 U/L (38-126); Magnesium 2.2 mg/dL (1.6-2.3)
[2023-02-05 09:50] LABS: INR 1.2 (<1.2); Partial Thromboplastin Time 25.6 sec (22.0-30.0); Prothrombin Time 12.3 sec (9.0-12.0)
--- NOTE | 2023-02-05 10:01 | XR ---
EXAMINATION TYPE: XR chest 2V DATE OF EXAM: 02/05/2023 9:33 AM CLINICAL INDICATION:Male, 72 years old with history of Chest Pain; [facility] COMPARISON: None TECHNIQUE: XR chest 2V Frontal and lateral views of the chest. FINDINGS: Lines/Tubes: EKG leads overlie the chest. No indwelling lines are seen. Lungs/Pleura: There is no evidence of pleural effusion, focal consolidation, or pneumothorax. Mild l inear atelectasis left lung base. Pulmonary vascularity: Unremarkable. Heart/mediastinum: Cardiac silhouette appears mildly prominent. Partially calcified mildly tortuous a itzel. Slight asymmetrically full appearance of the left hilum. Musculoskeletal: No acute osseous pathology. Mild degenerative changes. Other findings: None IMPRESSION: 1. Mild linear atelectasis left lower lobe. 2. Asymmetrically full appearance of the left hilum, may represent vascular shadow however mass or a denopathy could have a similar appearance. In the absence of prior studies for comparison, nonemergen t outpatient contrast chest CT could be considered for further evaluation.
[2023-02-05] MEDS ORDERED: NALOXONE 0.4 MG/ML 1 ML VIAL IV PRN (10:32)
[2023-02-05] MEDS ORDERED: NITROGLYCERIN SL TABS 0.4 MG TAB SUBLINGUAL PRN (10:33)
[2023-02-05] MEDS: NITROGLYCERIN OINT 1 INCH/GM PACKET TOPICAL SCH ×3 (11:15→23:05)
[2023-02-05] MEDS ORDERED: MAG HYDROX/AL HYDROX/SIMETH 30 ML CUP PO PRN (12:04)
[2023-02-05] MEDS ORDERED: ONDANSETRON 4 MG/2 ML VIAL IVP PRN (12:04)
[2023-02-05] MEDS ORDERED: CALCIUM CARBONATE 500 MG CHEWABLE PO PRN (12:04)
[2023-02-05] MEDS ORDERED: ACETAMINOPHEN TAB 325 MG TAB PO PRN (12:04)
--- NOTE | 2023-02-05 14:53 | P.HPIM ---
History of Present Illness H&P Date: 02/05/23 * 72-year-old gentleman with past medical history significant for gastroesophageal reflux disease, seizure disorder, Parkinson's hyperlipidemia history of neuralgia presents to the emergency department with complains of chest pain. Patient said symptom onset was early in the morning on the day of presentation. Patient says he woke up from sleep. Patient didn't have associated shortness of breath associated with that. We decided to seek medical attention secondary to intermittent discomfort * Workup in ER included EKG which showed sinus rhythm no significant ST segment changes. Chest x-ray obtained showed atelectasis per history left lower lobe * Blood work obtained in ER included hematology which showed WBC 7, hemoglobin 17 hematocrit 51 platelet 119 INR of 1.2 serum chemistry sodium 139 potassium 4.9 BUN 20 creatinine 0.8 * Multiple troponins drawn less than 0.012 within normal limits REVIEW OF SYSTEMS: Chest pain shortness of breath, baseline tremor CONSTITUTIONAL: No fever, no malaise, no fatigue. HEENT: No recent visual problems or hearing problems. Denied any sore throat. CARDIOVASCULAR: Positive for chest pain shortness of breath PULMONARY: No shortness of breath, no cough, no hemoptysis. GASTROINTESTINAL: No diarrhea, no nausea, no vomiting, no abdominal pain. NEUROLOGICAL: No headaches, no weakness, no numbness. HEMATOLOGICAL: Denies any bleeding or petechiae. GENITOURINARY: Denies any burning micturition, frequency, or urgency. MUSCULOSKELETAL/RHEUMATOLOGICAL: Denies any joint pain, swelling, or any muscle pain. ENDOCRINE: Denies any polyuria or polydipsia. The rest of the 14-point review of systems is negative. PHYSICAL EXAMINATION: GENERAL: The patient is alert and oriented x3, not in any acute distress. Ill appearance, baseline tremor HEENT: Pupils are round and equally reacting to light. EOMI. CARDIOVASCULAR: S1 and S2 present. No murmurs, rubs, or gallops. PULMONARY: Chest is clear to auscultation, no wheezing or crackles. ABDOMEN: Soft, nontender, nondistended, normoactive bowel sounds. No palpable organomegaly. MUSCULOSKELETAL: No joint swelling or deformity. EXTREMITIES: No cyanosis, clubbing, or pedal edema. NEUROLOGICAL: Gross neurological examination did not reveal any focal deficits. SKIN: No rashes. Past Medical History Past Medical History: GERD/Reflux, Hyperlipidemia, Neurologic Disorder, Seizure Disorder, Skin Disorder Additional Past Medical History / Comment(s): LAST SEIZURE 6 yrs ago,epilepsy, PARKINSON'S, hiatal hernia, diff swallowing, constipation,gets rashes on knees and elbows-NO CURRENT RASH, "borderline cholesterol" History of Any Multi-Drug Resistant Organisms: None Reported Past Surgical History: Orthopedic Surgery Additional Past Surgical History / Comment(s): ORIF L ankle. VICENTE CATARACT SX, PILONIDAL CYSTECTOMY, COLONOSCOPY, EGD Past Anesthesia/Blood Transfusion Reactions: No Reported Reaction Additional Past Anesthesia/Blood Transfusion Reaction / Comment(s): HAS NOT HAD GENERAL SURGERY Past Psychological History: No Psychological Hx Reported Smoking Status: Never smoker Past Alcohol Use History: None Reported Past Drug Use History: None Reported - Past Family History Mother Family Medical History: No Reported History Additional Family Medical History / Comment(s): . Father Family Medical History: Myocardial Infarction ([place]) Additional Family Medical History / Comment(s): Father of a [place] at the age of 65 yrs. Medications and Allergies Home Medications Medication Instructions Recorded Confirmed Type Phenytoin Sodium Extended 100 mg PO DIRECTED 02/26/16 02/05/23 History [Dilantin] Aspirin [Adult Low Dose Aspirin EC] 81 mg PO DAILY 06/09/20 02/05/23 History Ubidecarenone [Co Q-10] 200 mg PO DAILY 06/09/20 02/05/23 History amantadine HCL [Amantadine] 100 mg PO BID 06/09/20 02/05/23 History l-Mefol/A-Cyst/Meb12/Algal Oil 1 cap PO DAILY 06/09/20 02/05/23 History [Cerefolin Nac Caplet] rOPINIRole HCL [Requip] 1 mg PO BID@0900,2100 06/09/20 02/05/23 History Ascorbic Acid [Vitamin C] 1,000 mg PO DAILY 02/05/23 02/05/23 History Carbidopa-Levodopa 25-100 mg 0.5 tab PO TID 02/05/23 02/05/23 History [Sinemet 25-100] Cholecalciferol [Vitamin D3 (25 50 mcg PO DAILY 02/05/23 02/05/23 History Mcg = 1000 Iu)] Allergies Allergy/AdvReac Type Severity Reaction Status Date / Time atorvastatin [From Lipitor] AdvReac muscle pain Verified 02/05/23 14:32 Physical Exam Vitals: Vital Signs Temp Pulse Resp BP Pulse Ox 02/05/23 11:42 70 20 109/94 96 02/05/23 10:00 71 20 111/78 95 02/05/23 08:52 97.6 F 69 18 138/91 95 Intake and Output 02/04/23 02/05/23 02/05/23 22:59 06:59 14:59 Other: Weight 81.647 kg Results CBC & Chem 7: 02/05/23 09:10 02/05/23 09:10 Labs: Abnormal Lab Results - Last 24 Hours (Table) 02/05/23 02/05/23 02/05/23 Range/Units 09:10 09:10 09:10 Lymphocytes # 0.9 L (1.0-4.8) k/uL PT 12.3 H (9.0-12.0) sec INR 1.2 H (<1.2) BUN 23 H (9-20) mg/dL Assessment and Plan Assessment: Assessment and plan * Chest pain rule out ACS * History of seizure disorder * Acute concerns disease * History of dyslipidemia * history of degenerative joint disease * In regards to chest pain, serial troponins ordered, EKG reviewed, cardiology consulted. As needed EKG for chest pain. * In regards to history of seizure disorder patient takes Dilantin at home, home meds once confirmed will be reconciled maintain seizure precautions * In regards to her dyslipidemia continue Lipitor * In regards to Parkinson continue Sinemet, amantadine * CODE STATUS is full code * SCDs for DVT prophylaxis
[2023-02-05] MEDS ORDERED: NON FORMULARY DRUG (Ubidecarenone [Co Q-10] 100 MG Capsule) PO SCH (15:00)
[2023-02-05] MEDS: ASCORBIC ACID 500 MG TAB PO SCH (15:47)
[2023-02-05] MEDS: CHOLECALCIFEROL 25 MCG (1000 IU) TABLET PO SCH (15:51)
[2023-02-05] MEDS: PHENYTOIN SODIUM EXTENDED 100 MG CAP PO SCH ×2 (15:52→20:24)
[2023-02-05] MEDS: CARBIDOPA-LEVODOPA 25-100 MG 1 EACH TAB PO SCH ×2 (15:53→20:23)
[2023-02-05 22:01] VITALS: TEMP 97.7
[2023-02-06] MEDS: NITROGLYCERIN OINT 1 INCH/GM PACKET TOPICAL SCH (05:05)
[2023-02-06 07:47] VITALS: BP 136/75; PULSE 63; RESP 18
[2023-02-06] MEDS ORDERED: ASPIRIN 325 MG TAB PO SCH (09:00)
[2023-02-06] MEDS ORDERED: ASPIRIN 81 MG PO SCH (09:00)
[2023-02-06] MEDS: ASCORBIC ACID 500 MG TAB PO SCH (10:05)
[2023-02-06] MEDS: PHENYTOIN SODIUM EXTENDED 100 MG CAP PO SCH (10:05)
[2023-02-06] MEDS: CHOLECALCIFEROL 25 MCG (1000 IU) TABLET PO SCH (10:05)
[2023-02-06] MEDS: CARBIDOPA-LEVODOPA 25-100 MG 1 EACH TAB PO SCH (10:07)
--- NOTE | 2023-02-06 10:28 | P.CRDCN ---
History of Present Illness History of present illness: HISTORY OF PRESENT ILLNESS: This is a 72-year-old male with a past medical history significant for Parkinson's disease. Patient follows in the office with Dr. Garcia. We have been asked to see the patient in consultation for chest pain. Patient examined at the bedside. Patient states that yesterday he had a sharp pain in his right arm. He also reports having chest pain and states it felt like and also was sitting on his chest. He states the pain only lasted for approximately 5 seconds and then resolved on its own. He states the pain only occurred at one time and has not had any recurrence of chest pain since. He denies any shortness of breath. Denies dizziness or lightheadedness. Initial EKG revealed sinus mechanism with no signs of acute ischemia. Patient's troponins are negative 3. We repeated an EKG this morning at the time of evaluation which did not reveal any acute ST- T wave changes REVIEW OF SYSTEMS: At the time of my exam: CONSTITUTIONAL: Denies fever or chills. HEENT: Denies blurred vision, vision changes, or eye pain. Denies hemoptysis CARDIOVASCULAR: Denies chest pain. Denies orthopnea. Denies PND. Denies palpitations RESPIRATORY: Denies shortness of breath. GASTROINTESTINAL: Denies abdominal pain. Denies nausea or vomiting. HEMATOLOGIC: Denies bleeding disorders. GENITOURINARY: Denies any blood in urine. SKIN: Denies pruitis. Denies rash. PHYSICAL EXAM: VITAL SIGNS: Reviewed. GENERAL: Well-developed in no acute distress. HEENT: Head is normocephalic. Pupils are equal, round. Sclerae anicteric. Mucous membranes of the mouth are moist. Neck supple. No JVD or thyromegaly LUNGS: Respirations even and unlabored. Lungs essentially clear to auscultation bilaterally. HEART: Regular rate and rhythm. S1 and S2 heard. ABDOMEN: Soft. Nondistended. Nontender. EXTREMITIES: Normal range of motion. No clubbing or cyanosis. Peripheral pulses intact. No lower extremity edema NEUROLOGIC: Awake and alert. Oriented x 3. ASSESSMENT: Chest pain, atypical, troponin negative 3 Hyperlipidemia, previously intolerant to statin therapy Parkinson's disease History of seizure disorder PLAN: An acute coronary event has been ruled out No need to obtain echocardiogram Begin Pravachol 20 mg at night. It is noted patient has previous statin intolerance. Repeat EKG performed this morning without acute ST-T wave changes Patient may be discharged home today from a cardiac standpoint We will sign off. Please reconsult if needed. Nurse practitioner note has been reviewed by physician. Signing provider agrees with the documented findings, assessment, and plan of care. Past Medical History Past Medical History: GERD/Reflux, Hyperlipidemia, Neurologic Disorder, Seizure Disorder, Skin Disorder Additional Past Medical History / Comment(s): LAST SEIZURE 6 yrs ago,epilepsy, PARKINSON'S, hiatal hernia, diff swallowing, constipation,gets rashes on knees and elbows-NO CURRENT RASH, "borderline cholesterol" History of Any Multi-Drug Resistant Organisms: None Reported Past Surgical History: Orthopedic Surgery Additional Past Surgical History / Comment(s): ORIF L ankle. VICENTE CATARACT SX, PILONIDAL CYSTECTOMY, COLONOSCOPY, EGD Past Anesthesia/Blood Transfusion Reactions: No Reported Reaction Additional Past Anesthesia/Blood Transfusion Reaction / Comment(s): HAS NOT HAD GENERAL SURGERY Past Psychological History: No Psychological Hx Reported Smoking Status: Never smoker Past Alcohol Use History: None Reported Past Drug Use History: None Reported - Past Family History Mother Family Medical History: No Reported History Additional Family Medical History / Comment(s): . Father Family Medical History: Myocardial Infarction ([place]) Additional Family Medical History / Comment(s): Father of a [place] at the age of 65 yrs. Medications and Allergies Home Medications Medication Instructions Recorded Confirmed Type Phenytoin Sodium Extended 100 mg PO DIRECTED 02/26/16 02/05/23 History [Dilantin] Aspirin [Adult Low Dose Aspirin EC] 81 mg PO DAILY 06/09/20 02/05/23 History Ubidecarenone [Co Q-10] 200 mg PO DAILY 06/09/20 02/05/23 History amantadine HCL [Amantadine] 100 mg PO BID 06/09/20 02/05/23 History l-Mefol/A-Cyst/Meb12/Algal Oil 1 cap PO DAILY 06/09/20 02/05/23 History [Cerefolin Nac Caplet] rOPINIRole HCL [Requip] 1 mg PO BID@0900,2100 06/09/20 02/05/23 History Ascorbic Acid [Vitamin C] 1,000 mg PO DAILY 02/05/23 02/05/23 History Carbidopa-Levodopa 25-100 mg 0.5 tab PO TID 02/05/23 02/05/23 History [Sinemet 25-100] Cholecalciferol [Vitamin D3 (25 50 mcg PO DAILY 02/05/23 02/05/23 History Mcg = 1000 Iu)] Allergies Allergy/AdvReac Type Severity Reaction Status Date / Time atorvastatin [From Lipitor] AdvReac muscle pain Verified 02/05/23 14:32 Physical Exam Vitals: Vital Signs Temp Pulse Pulse Resp BP BP BP 02/06/23 07:00 97.7 F 63 18 136/75 02/06/23 00:26 97.7 F 65 16 134/77 02/05/23 19:10 97.7 F 74 16 126/72 02/05/23 17:46 97.8 F 71 16 150/74 02/05/23 16:46 71 20 118/66 02/05/23 15:57 72 20 116/71 02/05/23 11:42 70 20 109/94 Pulse Ox 02/06/23 07:00 96 02/06/23 00:26 96 02/05/23 19:10 94 L 02/05/23 17:46 96 02/05/23 16:46 95 02/05/23 15:57 95 02/05/23 11:42 96 Intake and Output 02/05/23 02/06/23 02/06/23 22:59 06:59 14:59 Intake Total 118 Output Total 300 Balance -300 118 Intake: Oral 118 Output: Urine 300 Other: # Voids 1 Results 02/05/23 09:10 02/05/23 09:10 Cardiac Enzymes 02/05/23 02/05/23 Range/Units 12:55 13:44 Troponin I <0.012 <0.012 (0.000-0.034) ng/mL Current Medications Generic Name Dose Route Start Last Admin Trade Name Freq PRN Reason Stop Dose Admin Acetaminophen 650 mg 02/05/23 12:04 Acetaminophen Tab 325 Mg Tab PO Q6HR PRN Mild Pain or Fever > 100.5 Al Hydroxide/Mg Hydroxide 15 ml 02/05/23 12:04 Mag Hydrox/Al Hydrox/Simeth 30 Ml Cup PO Q6HR PRN Indigestion Amantadine HCl 100 mg 02/05/23 14:50 02/06/23 10:07 Amantadine Hcl 100 Mg Cap PO 100 mg BID CINDY Administration Ascorbic Acid 1,000 mg 02/05/23 15:00 02/06/23 10:05 Ascorbic Acid 500 Mg Tab PO 1,000 mg DAILY CINDY Administration Aspirin 81 mg 02/06/23 09:00 02/06/23 10:05 Aspirin 81 Mg PO 81 mg DAILY CINDY Administration Calcium Carbonate/Glycine 1,000 mg 02/05/23 12:04 Calcium Carbonate 500 Mg Chewable PO Q4HR PRN Dyspepsia Carbidopa/Levodopa 0.5 each 02/05/23 16:00 02/06/23 10:07 Carbidopa-Levodopa 25-100 Mg 1 Each Tab PO 0.5 each TID CINDY Administration Cholecalciferol 50 mcg 02/05/23 15:00 02/06/23 10:05 Cholecalciferol 25 Mcg (1000 Iu) Tablet PO 50 mcg DAILY CINDY Administration Naloxone HCl 0.2 mg 02/05/23 10:32 Naloxone 0.4 Mg/Ml 1 Ml Vial IV Q2M PRN Opioid Reversal Nitroglycerin 0.4 mg 02/05/23 10:33 Nitroglycerin Sl Tabs 0.4 Mg Tab SUBLINGUAL Q5M PRN Chest Pain Ondansetron HCl 4 mg 02/05/23 12:04 Ondansetron 4 Mg/2 Ml Vial IVP Q8HR PRN Nausea And Vomiting Phenytoin Sodium 100 mg 02/05/23 14:50 02/06/23 10:05 Phenytoin Sodium Extended 100 Mg Cap PO 100 mg BID CINDY Administration Phenytoin Sodium 100 mg 02/06/23 15:00 Phenytoin Sodium Extended 100 Mg Cap PO Q48H [facility] Pravastatin Sodium 20 mg 02/06/23 21:00 Pravastatin Sodium 20 Mg Tab PO HS [facility] Ropinirole HCl 1 mg 02/05/23 21:00 02/06/23 10:10 Ropinirole Hcl 1 Mg Tab PO 1 mg BID@0900,2100 CINDY Administration Intake and Output 02/05/23 02/06/23 02/06/23 22:59 06:59 14:59 Intake Total 118 Output Total 300 Balance -300 118 Intake: Oral 118 Output: Urine 300 Other: # Voids 1 02/05/23 09:10 02/05/23 09:10
[2023-02-06 11:10] LABS: Calcium 9.4 mg/dL (8.7-10.3); Carbon Dioxide 25.8 mmol/L (21.6-31.8); Chloride 104 mmol/L (96-109); Chol/HDL Ratio 3.12 Ratio; Glucose 82 mg/dL (70-110); LDL Cholesterol,Calculated 115.9 mg/dL (0.0-131.0); Potassium 4.7 mmol/L (3.5-5.5); Sodium 140 mmol/L (135-145); VLDL Calculation 17.94 mg/dL (5.00-40.00)
[2023-02-06] MEDS ORDERED: PHENYTOIN SODIUM EXTENDED 100 MG CAP PO SCH (15:00)
--- NOTE | 2023-02-06 17:01 | P.DS ---
Providers Date of admission: 02/05/23 10:32 Expected date of discharge: 02/06/23 Attending physician: Shilo Campuzano Primary care physician: Dominique Gong [facility] Course: Hospital course: 72-year-old gentleman with past medical history significant for gastroesophageal reflux disease, seizure disorder, Parkinson's hyperlipidemia history of neuralgia presents to the emergency department with complains of chest pain. Patient said symptom onset was early in the morning on the day of presentation. Patient says he woke up from sleep. Patient didn't have associated shortness of breath associated with that. We decided to seek medical attention secondary to intermittent discomfort * Workup in ER included EKG which showed sinus rhythm no significant ST segment changes. Chest x-ray obtained showed atelectasis per history left lower lobe * Blood work obtained in ER included hematology which showed WBC 7, hemoglobin 17 hematocrit 51 platelet 119 INR of 1.2 serum chemistry sodium 139 potassium 4.9 BUN 20 creatinine 0.8 * Multiple troponins drawn less than 0.012 within normal limits 02/06/2023: Patient sitting up in a chair. Has been up and back to the bathroom. No further chest symptoms. Discussed with the patient . Does follow up with Dr. Garcia. Saw him recently. Had a stress test around a year ago. There was negative. Cleared by cardiology. Questions answered. Patient to follow-up with Dr. Garcia next week. Discussion and discharge planning more than 35 minutes On examination: VITAL SIGNS: [97.7, 63, 18, 136/75, 96% room air] GENERAL APPEARANCE: Sitting up in a chair, comfortable HEENT: Normal external appearance of nose and ear. Oral cavity normal EYES: Pupils equal. Conjunctiva normal. NECK: JVD not raised. Mass not palpable. RESPIRATORY: Respiratory effort normal. Lungs clear to auscultation. CARDIOVASCULAR: First and second sounds normal. No edema. ABDOMEN: Soft. Liver and spleen not palpable. No tenderness. No mass palpable. PSYCHIATRY: Alert and oriented x3. Mood and affect normal. Past Medical History Past Medical History: GERD/Reflux, Hyperlipidemia, Neurologic Disorder, Seizure Disorder, Skin Disorder Additional Past Medical History / Comment(s): LAST SEIZURE 6 yrs ago,epilepsy, PARKINSON'S, hiatal hernia, diff swallowing, constipation,gets rashes on knees a nd elbows-NO CURRENT RASH, "borderline cholesterol" History of Any Multi-Drug Resistant Organisms: None Reported Past Surgical History: Orthopedic Surgery Additional Past Surgical History / Comment(s): ORIF L ankle. VICENTE CATARACT SX, PILONIDAL CYSTECTOMY, COLONOSCOPY, EGD Past Anesthesia/Blood Transfusion Reactions: No Reported Reaction Additional Past Anesthesia/Blood Transfusion Reaction / Comment(s): HAS NOT HAD GENERAL SURGERY Past Psychological History: No Psychological Hx Reported Smoking Status: Never smoker Past Alcohol Use History: None Reported Past Drug Use History: None Reported - Past Family History Mother Family Medical History: No Reported History Additional Family Medical History / Comment(s): . Father Family Medical History: Myocardial Infarction ([place]) Additional Family Medical History / Comment(s): Father of a [place] at the age of 65 yrs. INVESTIGATIONS, reviewed in the clinical context: Sodium 140 potassium 4.7 creatinine 1.0 white count 7 hemoglobin 17.3 platelets 191 LDL 115 Troponin I 3 negative EKG tracing personally reviewed by me-normal sinus rhythm. Assessment and plan -Anterior chest wall pain. Possibly musculoskeletal. Cleared by cardiology. Follow-up with this sign fabricator Dr. Garcia -[facility] [place] when necessary -Hyperlipidemia Pravachol-discussed with patient and -Epilepsy -Parkinson disorder Sinemet. Requip -Hiatal hernia -Primary osteoarthritis Tylenol when necessary -Possible abnormal chest x-ray: Asymmetrically full appearance of the left hilum reported. I called the patient's came at home. Explained the chest x-ray findings. She'll speak to Dr. gong this coming Monday to get the computed tomography scan of the chest done. To rule out anything of significance. Plan - Discharge Summary Discharge Rx Participant: No New Discharge Prescriptions: New Nitroglycerin Sl Tabs [Nitrostat] 0.4 mg SUBLINGUAL Q5M PRN #30 tab PRN Reason: Chest Pain Pravastatin Sodium [Pravachol] 20 mg PO HS #30 tab Continue Phenytoin Sodium Extended [Dilantin] 100 mg PO DIRECTED Ubidecarenone [Co Q-10] 200 mg PO DAILY Aspirin [Adult Low Dose Aspirin EC] 81 mg PO DAILY l-Mefol/A-Cyst/Meb12/Algal Oil [Cerefolin Nac Caplet] 1 cap PO DAILY rOPINIRole HCL [Requip] 1 mg PO BID@0900,2100 amantadine HCL [Amantadine] 100 mg PO BID Carbidopa-Levodopa 25-100 mg [Sinemet 25-100 mg] 0.5 tab PO TID Ascorbic Acid [Vitamin C] 1,000 mg PO DAILY Cholecalciferol [Vitamin D3 (25 Mcg = 1000 Iu)] 50 mcg PO DAILY Discharge Medication List Phenytoin Sodium Extended [Dilantin] 100 mg PO DIRECTED 02/26/16 [History] Aspirin [Adult Low Dose Aspirin EC] 81 mg PO DAILY 06/09/20 [History] Ubidecarenone [Co Q-10] 200 mg PO DAILY 06/09/20 [History] amantadine HCL [Amantadine] 100 mg PO BID 06/09/20 [History] l-Mefol/A-Cyst/Meb12/Algal Oil [Cerefolin Nac Caplet] 1 cap PO DAILY 06/09/20 [History] rOPINIRole HCL [Requip] 1 mg PO BID@0900,2100 06/09/20 [History] Ascorbic Acid [Vitamin C] 1,000 mg PO DAILY 02/05/23 [History] Carbidopa-Levodopa 25-100 mg [Sinemet 25-100 mg] 0.5 tab PO TID 02/05/23 [Histo ry] Cholecalciferol [Vitamin D3 (25 Mcg = 1000 Iu)] 50 mcg PO DAILY 02/05/23 [History] Nitroglycerin Sl Tabs [Nitrostat] 0.4 mg SUBLINGUAL Q5M PRN #30 tab 02/06/23 [Rx] Pravastatin Sodium [Pravachol] 20 mg PO HS #30 tab 02/06/23 [Rx] Follow up Appointment(s)/Referral(s): Maggie Garcia MD [STAFF PHYSICIAN] - 1 Week Dominique Gong DO [Primary Care Provider] - 1-2 days Discharge Disposition: HOME SELF-CARE
[2023-02-06] MEDS ORDERED: PRAVASTATIN SODIUM 20 MG TAB PO SCH (21:00)
== END 2023-02-06 13:50 | disposition home or self-care (01) ==
LOC: EC 08:47 → 6NMEDSUR 10:32
PROVIDERS: ADMIT Hospitalist; ATTEND Hospitalist
DX: R07.89 Other chest pain (principal); K21.9 Gastro-esophageal reflux disease without esophagitis; E78.5 Hyperlipidemia, unspecified; G20.A1 Parkinson's disease without dyskinesia, without mention of fluctuations; G40.909 Epilepsy, unspecified, not intractable, without status epilepticus; K44.9 Diaphragmatic hernia without obstruction or gangrene; M19.91 Primary osteoarthritis, unspecified site; Z79.82 Long term (current) use of aspirin; Z79.899 Other long term (current) drug therapy; Z82.49 Family history of ischemic heart disease and other diseases of the circulatory system
CPT/HCPCS: 99285; 36415; 93005; 85379; 80061; 80053; 80048; 83735; 84484; 85025; 85610; 85730; 71046; G0378 ×2